=== PATIENT | female | born 1975 | race American Indian/Alaskan Native ===

== ENCOUNTER → 2016-10-24 | Outpatient (CLI) | payer OTHER | LOC: RAD 08:24 | PROVIDERS: ATTEND Internal Medicine Rheumatology | DX: R13.10 Dysphagia, unspecified (principal); M34.1 CR(E)ST syndrome; I27.2 Other secondary pulmonary hypertension; J84.9 Interstitial pulmonary disease, unspecified; K21.9 Gastro-esophageal reflux disease without esophagitis; K44.9 Diaphragmatic hernia without obstruction or gangrene | CPT/HCPCS: 74210 ==

== ENCOUNTER → 2016-10-25 | Outpatient (CLI) | payer OTHER ==
--- NOTE | 2016-10-27 19:26 | XCELERA REPORT ---
[address] [address] Transthoracic Echocardiogram Report Name: SATISH PIRES Age: 40 yrs Gender: Female : 1975 Patient Status: Outpatient Patient Location: Study Date: 10/25/2016 11:10 AM Height: 66 in Weight: 160 lb BSA: 1.8 m2 Procedure: A complete two-dimensional transthoracic echocardiogram was performed (2D, M-mode, spectral and color flow Doppler). The study was technically adequate with some images being suboptimal in quality. Reason For Study: [facility] Ordering Physician: SOLA SHAIKH Performed By: Addis Chavira Interpretation Summary The left ventricular ejection fraction is within normal limits. There is normal left ventricular wall thickness. The left ventricle is grossly normal size. Doppler measurements suggest normal left ventricular diastolic function No regional wall motion abnormalities noted. The right ventricle is grossly normal size. The right ventricular systolic function is normal. The right atrium is normal in size The left atrial size is normal. There is no mitral valve stenosis. There is a trace amount of mitral regurgitation There is no aortic valve stenosis No aortic regurgitation is present. There is a trace or physiologic amount of tricuspid regurgitation Right ventricular systolic pressure is at the upper limits of normal The aortic root is not well visualized but is probably normal size. The inferior vena cava appeared normal and decreased < 50% with respiration (RAP 10-15 mmHg) There is no pericardial effusion. MMode/2D Measurements \T\ Calculations RVDd: 1.9 cm LVIDd: 5.1 cm FS: 32.9 % Ao root diam: 2.4 cm IVSd: 0.56 cm LVIDs: 3.4 cm EDV(Teich): 124.8 ml LVPWd: 0.70 cm ESV(Teich): 48.6 ml Ao root area: 4.4 cm2 EF(Teich): 61.1 % LA dimension: 3.1 cm Doppler Measurements \T\ Calculations MV E max kory: MV P1/2t max kory: Ao V2 max: LV V1 max P.5 cm/sec 113.0 cm/sec 162.9 cm/sec 6.1 mmHg MV A max kory: MV P1/2t: 63.2 msec Ao max PG: LV V1 max: 58.2 cm/sec 10.6 mmHg 123.4 cm/sec MV E/A: 1.9 MVA(P1/2t): 3.5 cm2 MV dec slope: 524.0 cm/sec2 PA V2 max: TR max kory: 78.5 cm/sec 206.3 cm/sec PA max PG: TR max P.0 mmHg 2.5 mmHg Left Ventricle The left ventricle is grossly normal size. There is normal left ventricular wall thickness. The left ventricular ejection fraction is within normal limits. Doppler measurements suggest normal left ventricular diastolic function. No regional wall motion abnormalities noted. Right Ventricle The right ventricle is grossly normal size. There is normal right ventricular wall thickness. The right ventricular systolic function is normal. Atria The right atrium is normal in size. The left atrial size is normal. Interarterial septum not well visualized and not well dopplered. Cannot comment on ASD/PFO presence. Mitral Valve The mitral valve is grossly normal. There is no mitral valve stenosis. There is a trace amount of mitral regurgitation. Aortic Valve The aortic valve is grossly normal. There is no aortic valve stenosis. No aortic regurgitation is present. Tricuspid Valve The tricuspid valve is not well visualized, but is grossly normal. There is no tricuspid stenosis. There is a trace or physiologic amount of tricuspid regurgitation. Right ventricular systolic pressure is at the upper limits of normal. Pulmonic Valve The pulmonic valve is not well visualized. Great Vessels The aortic root is not well visualized but is probably normal size. The inferior vena cava appeared normal and decreased < 50% with respiration (RAP 10-15 mmHg). Effusions There is no pericardial effusion. : SOLA SHAIKH > Aicha Fraser
== END ==
LOC: SP 11:06
PROVIDERS: ATTEND Internal Medicine Rheumatology
DX: I27.2 Other secondary pulmonary hypertension (principal); M34.1 CR(E)ST syndrome; R13.10 Dysphagia, unspecified; J84.9 Interstitial pulmonary disease, unspecified
CPT/HCPCS: 93306

== ENCOUNTER → 2018-02-20 | Outpatient (CLI) | payer OTHER ==
--- NOTE | 2018-02-20 12:38 | RADIOLOGY REPORT (SQ) ---
EXAM DESCRIPTION: BARIUM SWALLOW ESOPHAGUS COMPLETED DATE/TIME: 02/20/2018 10:16 am REASON FOR STUDY: DYSPHAGIA COMPARISON: UPPER GI 01/23/2017 TECHNIQUE: Under fluoroscopic guidance, patient ingested effervescent granules followed by thick and thin barium. Fluoroscopic spot images and routine radiographic images acquired and stored on PACS. 12 MM BARIUM TABLET GIVEN: Yes. Slight delay at the GE junction. LIMITATIONS: None. FLUOROSCOPY TIME: FLUORO TIME: 1.3 minutes of fluoroscopy was used. 11 images saved to PACS. FINDINGS: NEUROMUSCULAR COORDINATION OF SWALLOW: Normal. No aspiration. ESOPHAGEAL MOTILITY: Normal peristalsis. No esophageal spasm. ESOPHAGEAL MUCOSA: Mild dilatation of the mid esophagus with smooth tapered narrowing at the GE junct ion. This narrowing does delay passage of the 12 mm barium tablet momentarily. GASTRO-ESOPHAGEAL JUNCTION: Small sliding hiatal hernia with free-flowing gastroesophageal reflux. I nflammatory changes seen at the GE junction with Schatzki's ring formation and scarring, similar when compared to previous study. NON-GI TRACT STRUCTURES: No significant finding. OTHER: No other significant finding. IMPRESSION: CHRONIC INFLAMMATORY CHANGES OF THE DISTAL ESOPHAGUS AND GE JUNCTION WITH SMALL SLIDING HIATAL HERNIA AND FREE-FLOWING GASTROESOPHAGEAL REFLUX NOTED. SMOOTH TAPERED NARROWING OF THE DISTAL ESOPHAGUS AT THE GE JUNCTION DOES DELAY PASSAGE OF A 12 MM BARIUM TABLET FOR APPROXIMATELY 1 MINUTE. FINDINGS CONSISTENT WITH REFLUX ESOPHAGITIS, ACUTE ON CHRONIC. RECOMMENDATION: Recommend endoscopy for further evaluation. COMMENT: Quality ID [id number]: Final reports for procedures using fluoroscopy that document radiation exp osure indices, or exposure time and number of fluorographic images (if radiation exposure indices are not available) TECHNICAL DOCUMENTATION: JOB ID: [id number] [employer]- All Rights Reserved Reading location - IP/workstation name: [id number]
--- NOTE | 2018-02-20 21:27 | XCELERA REPORT ---
[address] [address] Transthoracic Echocardiogram Report Name: SATISH PIRES Age: 42 yrs Gender: Female : 1975 Patient Status: Outpatient Patient Location: RAD Study Date: 02/20/2018 10:38 AM Height: 66 in Weight: 134 lb BSA: 1.7 m2 Procedure: A complete two-dimensional transthoracic echocardiogram was performed (2D, M-mode, spectral and color flow Doppler). The study was technically adequate with some images being suboptimal in quality. Reason For Study: PULM HTN Ordering Physician: SOLA SHAIKH Performed By: Francia Degroot Interpretation Summary The left ventricular ejection fraction is normal. Doppler measurements suggest normal left ventricular diastolic function The left ventricle is grossly normal size. There is normal left ventricular wall thickness. Wall motion cannot be accurately commented on, but no definite regional wall motion abnormalities noted. The right ventricular systolic function is normal. The right atrium is normal. The left atrial size is normal. There is no mitral valve stenosis. There is a trace to mild amount of mitral regurgitation There is no aortic valve stenosis No aortic regurgitation is present. There is a mild amount of tricuspid regurgitation There is mild pulmonary hypertension by echo Best estimated RVSP is approximately 35 mm/Hg. The aortic root is not well visualized but is probably normal size. The inferior vena cava appeared normal and decreased > 50% with respiration (RAP 5-10 mmHg) Moderate pericardial effusion. There are no echocardiographic or Doppler indications for cardiac tamponade MMode/2D Measurements & Calculations RVDd: 2.4 cm LVIDd: 4.8 cm FS: 45.0 % Ao root diam: 2.5 cm IVSd: 0.68 cm LVIDs: 2.7 cm EDV(Teich): 108.9 ml LVPWd: 0.68 cm ESV(Teich): 25.9 ml Ao root area: 4.9 cm2 EF(Teich): 76.2 % LA dimension: 3.4 cm Doppler Measurements & Calculations MV E max kory: MV P1/2t max kory: Ao V2 max: LV V1 max P.7 cm/sec 99.7 cm/sec 119.4 cm/sec 3.9 mmHg MV A max kory: MV P1/2t: 64.5 msec Ao max PG: LV V1 max: 48.4 cm/sec 5.7 mmHg 98.2 cm/sec MV E/A: 2.1 MVA(P1/2t): 3.4 cm2 MV dec slope: 452.7 cm/sec2 MV dec time: 0.19 sec PA V2 max: PI end-d kory: TR max kory: 89.8 cm/sec 109.8 cm/sec 273.9 cm/sec PA max PG: TR max P.2 mmHg 30.0 mmHg Left Ventricle The left ventricle is grossly normal size. There is normal left ventricular wall thickness. The left ventricular ejection fraction is normal. Doppler measurements suggest normal left ventricular diastolic function. Wall motion cannot be accurately commented on, but no definite regional wall motion abnormalities noted. Right Ventricle The right ventricle is grossly normal size. There is normal right ventricular wall thickness. The right ventricular systolic function is normal. Atria The right atrium is normal. The left atrial size is normal. The interatrial septum is intact with no evidence for an atrial septal defect. Mitral Valve The mitral valve is grossly normal. There is no mitral valve stenosis. There is a trace to mild amount of mitral regurgitation. Aortic Valve The aortic valve is grossly normal. There is no aortic valve stenosis. No aortic regurgitation is present. Tricuspid Valve The tricuspid valve is not well visualized, but is grossly normal. There is no tricuspid stenosis. There is a mild amount of tricuspid regurgitation. There is mild pulmonary hypertension by echo. Best estimated RVSP is approximately 35 mm/Hg. Pulmonic Valve The pulmonic valve is not well visualized. Great Vessels The aortic root is not well visualized but is probably normal size. The inferior vena cava appeared normal and decreased > 50% with respiration (RAP 5-10 mmHg). Effusions Moderate pericardial effusion. There are no echocardiographic or Doppler indications for cardiac tamponade. : SOLA SHAIKH > Aicha Fraser
== END ==
LOC: RAD 09:35
PROVIDERS: ATTEND Internal Medicine Rheumatology
DX: R13.10 Dysphagia, unspecified (principal); M34.1 CR(E)ST syndrome; I27.20 Pulmonary hypertension, unspecified; J84.9 Interstitial pulmonary disease, unspecified
CPT/HCPCS: 74220; 93306